=== PATIENT | female | born 1950 | race Caucasian/White ===

== ENCOUNTER 2020-02-22 16:46 | Observation (INO) ==
[2020-02-22] MEDS ORDERED: IOPAMIDOL 100 ML BOTTLE IV ONE (16:47)
[2020-02-22] MEDS ORDERED: 0.9 % SODIUM CHLORIDE 1,000 ML IV ONE (17:03)
[2020-02-22] MEDS ORDERED: morphine 2 MG/ML VIAL IV ONE (17:03)
[2020-02-22] MEDS ORDERED: ONDANSETRON 4 MG/2 ML VIAL IV ONE (17:03)
--- NOTE | 2020-02-22 17:08 | Emergency Department Note ---
Abdominal Pain HPI General Chief Complaint: Abdominal Pain Stated Complaint: RLQ pain Time Seen by Provider: 02/22/20 16:51 Source: patient Mode of arrival: ambulatory Limitations: no limitations History of Present Illness HPI Narrative: Narrative: 69-year-old female patient presents emergency department chief complaint of sudden onset right lower quadrant abdominal pain. Patient mentions she was making dinner in her kitchen just prior to arrival when she felt a sudden sharp, stabbing type pain to the right lower quadrant. This caused her great concern. She became nauseated but has not vomited. She still retains her appendix at this time. She does history of IBS but tells me she has not had issues associate with this "for many years". Her last bowel movement was 3 days ago. She mentions this is "for her. She currently rates her pain to the right lower quadrant and 8/10. ROS: Denies systemic illness, fever, sweats, chills. Denies headaches, tinnitus, or vision changes. Denies runny nose, sinus congestion, or cough. Denies shortness of breath. Denies retrosternal chest pain or palpitations. Denies dysuria, hematuria, urinary frequency, or urinary urgency. Denies generalized or focal weakness. Related Data Home Medications Medication Instructions Recorded Confirmed aspirin 81 mg chewable tablet 81 mg PO QDAY tab 10/05/14 05/17/17 ibuprofen 400 mg tablet 400 mg PO Q4H tab 10/05/14 05/17/17 omega-3 fatty acids 1,000 mg 1,000 mg PO QDAY cap 10/05/14 05/17/17 capsule calcium 500mg PO 09/30/16 05/17/17 vitamin E (dl, acetate) 400 unit 400 unit PO QDAY 09/30/16 05/17/17 capsule vitamin b-12 500mcg PO 09/30/16 05/17/17 cholecalciferol (vitamin D3) 50 2,000 unit PO QDAY cap 05/17/17 05/17/17 mcg (2,000 unit) capsule Previous Rx's Medication Instructions Recorded magnesium oxide 400 mg (241.3 mg 400 mg PO BID #60 tab 10/04/15 magnesium) tablet omeprazole 20 mg capsule,delayed 20 mg PO QDAY #30 cap 09/30/16 release thyroid (pork) 180 mg tablet 180 mg PO QDAY #30 tab 11/15/17 sertraline 50 mg tablet 100 mg PO QHS #180 tab 03/07/18 Allergies Allergy/AdvReac Type Severity Reaction Status Date / Time levofloxacin [From Levaquin] Allergy Unknown Unknown Verified 02/22/20 16:47 Review of Systems ROS ROS Narrative: Narrative: All systems ED: reviewed and negative except as stated. PFS Narrative Patient History Narrative: Narrative: Medical/Surgical/Family History All Active Problems (Updated 02/22/20 @ 19:13 by Parish Hale PA-C) Acute appendicitis (Acute) Ankle arthritis (Chronic) Disc disorder of lumbar region (Chronic) Depression (Chronic) Muscle cramps (Chronic) Atrophic vaginitis (Chronic) Acute meniscal injury of left knee (Chronic) Adenomatous polyp (Chronic) Disc disorder of lumbar region (Chronic) IBS (irritable bowel syndrome) (Chronic) Hyperlipidemia (Chronic) Medical History Acute meniscal injury of left knee (Chronic) Cat bite involving extremity (Resolved) Colonic polyp (Resolved) Disc disorder of lumbar region (Chronic) Hyperlipidemia (Chronic) IBS (irritable bowel syndrome) (Chronic) Surgical History Adenomatous polyp (Chronic) 2010 Removal History of colonoscopy (Chronic 01/07/17) History of tonsillectomy (Resolved) History of tubal ligation (Resolved) 1993 Family History Mother Chronic obstructive pulmonary disease Hyperlipidemia Essential hypertension Unknown Dementia due to general medical condition Maternal relatives Aunt Leukemia Malignant neoplasm of stomach Uncle Cardiac disease Cousin Malignant neoplasm of esophagus Social History Smoking Status: Never smoker Alcohol Intake Frequency: does not drink Exam Narrative Narrative: Narrative: General Limitations: no limitations General appearance: Present other (Well-developed, well-nourished, obese 69-year-old female patient laying semirecumbent on the emergency room gurney in obvious discomfort. She is in no acute respiratory distress. She is afebrile with normal vital signs.) Head Head: Present normocephalic Eye Eye: Present normal appearance, PERRL and EOMI; Absent scleral icterus and conjunctival injection ENT ENT: Present normal oropharynx and mucous membranes moist Neck Neck: Present trachea midline; Absent lymphadenopathy and thyromegaly Chest Chest: Present symmetric chest wall rise Respiratory Respiratory: Present normal lung sounds bilaterally; Absent respiratory distress, wheezes, stridor, accessory muscle use and prolonged expiratory phase Cardiovascular Cardiovascular: Present regular rate and normal rhythm; Absent systolic murmur and diastolic murmur Adbominal Abdominal: Present soft, tenderness, guarding, rebound, normal bowel sounds and tenderness at [place]'s Point; Absent distention, rigidity, organomegaly, psoas sign, obturator sign, heel tap sign, mass and pulsatile mass Expanded Abdominal Abdominal Tenderness: Present RLQ and severe Extremities Extremities: Present normal inspection, full ROM, normal capillary refill and other (Multiple superficial varicosities noted to the bilateral lower extremities.) Neurological Neurological: Present alert and oriented X3 Psychiatric Psychiatric: Present normal affect and normal mood Skin Skin: Present warm (WNL), dry and normal color Course Course Course Narrative: The differential diagnosis of lower abdominal pain in the adult patient includes the following: Appendicitis, diverticulitis, nephrolithiasis, pyelonephritis, acute urinary retention, cystitis, infectious colitis. Patient has sudden onset right lower quadrant abdominal pain this evening. She does retain her appendix we need to ensure this is not a an appendicitis. Patient is also not had a bowel movement last 3 days this could be constipation related. I am going to order a contrast-enhanced CT scan of her abdomen/for cause of her pain. Were also going to order some screening laboratory studies. Patient was given normal saline 1000 mL as a bolus. We are going to provide her morphine 2 mg IVP for her pain. Also going to give her Zofran 4 mg IVP for the nausea. Reevaluation(s) Reevaluation #1: Radiologist call with the verbal report of the CT scan of the patient's abdomen/pelvis. At this time patient does have apparent appendicitis with inflammation and swelling of her appendix. Upon reevaluation patient continues to complain of pain. I am still waiting on the patient's laboratory results. However, I did reach out to our on-call general surgeon (Dr. Garcia) discussed case briefly with him. At this time Dr. Garcia mentioned he would come down and evaluate the patient. Time: 18:30 Reevaluation #2: Dr. Garcia arrived to the patient's bedside and performed his evaluation. At this time patient is going to be admitted to the hospital under his care in order to undergo urgent appendectomy. A review of the patient's diagnostics of the following: CBC within normal limits. CMP also within normal limits. All further treatment decisions, modalities, and ultimate patient disposition to be carried out by Dr. Garcia. Time: 19:10 Vital Signs Vital signs: Vital Signs Temperature 97.7 F 02/22/20 16:47 Pulse Rate 66 02/22/20 16:47 Respiratory Rate 20 02/22/20 16:47 Blood Pressure 143/75 02/22/20 16:47 Pulse Oximetry (%) 98 02/22/20 16:47 Temperature 97.7 F 02/22/20 20:00 Pulse Rate 97 H 02/22/20 20:00 Respiratory Rate 20 02/22/20 20:00 Blood Pressure 130/51 02/22/20 20:00 Pulse Oximetry (%) 95 02/22/20 20:00 MDM MDM Narrative Medical decision making narrative: Narrative: Lab Data Lab results reviewed: Yes I reviewed the patient's lab results. Result diagrams: 02/22/20 17:10 02/22/20 17:13 Labs: Lab Results 02/22/20 02/22/20 02/22/20 Range/Units 17:10 17:13 18:37 WBC 9.6 (4.5-11.0) K/mcL RBC 4.35 (4.00-5.20) M/mcL Hgb 13.1 (12.0-15.0) g/dL Hct 42.0 (36.0-48.0) % MCV 96.6 (80.0-100.0) fL MCH 30.1 (26.0-34.0) pg MCHC 31.2 (31.0-36.0) g/dL RDW 12.7 (11.5-14.5) % Plt Count 162 (140-440) K/mcL MPV 10.7 H (7.4-10.4) fL Seg Neutrophils % 74 (38-78) % Lymphocytes % 17 (15-49) % Monocytes % (Manual) 7 (1-12) % Eosinophils % (Manual) 2 (0-7) % Platelet Estimate Normal (Normal) RBC Morphology Normal (Normal) Sodium 136 (133-145) mmol/L Potassium 3.7 (3.3-5.1) mmol/L Chloride 102 (96-108) mmol/L Carbon Dioxide 25 (22-30) mmol/L Anion Gap 9.0 (8.0-16.0) BUN 14 (8-23) mg/dL Creatinine 0.8 (0.6-1.1) mg/dL POC Creatinine 0.8 (0.6-1.2) mg/dL GFR Calculation 74 Glucose 96 (70-105) mg/dL Calcium 9.1 (8.6-10.4) mg/dL Total Bilirubin 0.3 (0.1-1.0) mg/dL AST 19 (<32) U/L ALT 19 (<40) U/L Alkaline Phosphatase 65 (39-117) U/L Total Protein 7.1 (5.9-8.4) gm/dL Albumin 4.1 (3.2-5.2) gm/dL Globulin 3.0 (2.2-3.7) gm/dL Albumin/Globulin Ratio 1.4 (1.0-2.3) Lipase 43 (7-60) U/L Urine Color Urine Appearance (Clear) Urine pH (5.0-9.0) Ur Specific [place] (1.000-1.035) Urine Protein (Negative) mg/dL Urine Glucose (UA) (Negative) mg/dL Urine Ketones (Negative) mg/dL Urine Occult Blood (Negative) mg/dL Urine Nitrate (Negative) Urine Bilirubin (Negative) mg/dL Urine Urobilinogen mg/dL Ur Leukocyte Esterase (Negative) /ug Ur Culture Indicated? SARS-CoV-2 (PCR) Negative (Negative) 02/22/20 Range/Units 18:40 WBC (4.5-11.0) K/mcL RBC (4.00-5.20) M/mcL Hgb (12.0-15.0) g/dL Hct (36.0-48.0) % MCV (80.0-100.0) fL MCH (26.0-34.0) pg MCHC (31.0-36.0) g/dL RDW (11.5-14.5) % Plt Count (140-440) K/mcL MPV (7.4-10.4) fL Seg Neutrophils % (38-78) % Lymphocytes % (15-49) % Monocytes % (Manual) (1-12) % Eosinophils % (Manual) (0-7) % Platelet Estimate (Normal) RBC Morphology (Normal) Sodium (133-145) mmol/L Potassium (3.3-5.1) mmol/L Chloride (96-108) mmol/L Carbon Dioxide (22-30) mmol/L Anion Gap (8.0-16.0) BUN (8-23) mg/dL Creatinine (0.6-1.1) mg/dL POC Creatinine (0.6-1.2) mg/dL GFR Calculation Glucose (70-105) mg/dL Calcium (8.6-10.4) mg/dL Total Bilirubin (0.1-1.0) mg/dL AST (<32) U/L ALT (<40) U/L Alkaline Phosphatase (39-117) U/L Total Protein (5.9-8.4) gm/dL Albumin (3.2-5.2) gm/dL Globulin (2.2-3.7) gm/dL Albumin/Globulin Ratio (1.0-2.3) Lipase (7-60) U/L Urine Color Straw Urine Appearance Clear (Clear) Urine pH 6.0 (5.0-9.0) Ur Specific [place] 1.025 (1.000-1.035) Urine Protein Negative (Negative) mg/dL Urine Glucose (UA) Negative (Negative) mg/dL Urine Ketones Negative (Negative) mg/dL Urine Occult Blood Negative (Negative) mg/dL Urine Nitrate Negative (Negative) Urine Bilirubin Negative (Negative) mg/dL Urine Urobilinogen Negative mg/dL Ur Leukocyte Esterase Negative (Negative) /ug Ur Culture Indicated? No SARS-CoV-2 (PCR) (Negative) Radiology Data Radiology results reviewed: Yes I reviewed the patient's radiology results. Radiology results narrative: Verbal report from radiologist mentions that the contrast-enhanced abdominal/pelvic CT scan did show evidence of acute appendicitis. Discharge Plan Patient/Caregiver Discharge Instructions Pt seen by FABRIC SEPARATOR OPERATOR/PA only: Yes Clinical Impression: Acute appendicitis Qualifiers: Acute appendicitis type: with localized peritonitis Appendicitis gangrene presence: unspecified whether gangrene present Appendicitis perforation presence: unspecified whether perforation present Appendicitis abscess presence: unspecified whether abscess present Qualified Code(s): K35.30 - Acute appendicitis with localized peritonitis, without perforation or gangrene Patient Disposition: Xfer As Inpt ([facility]) Condition: Good Discharge Date/Time: 02/22/20 19:50
[2020-02-22 17:16] LABS: POC Creatinine 0.8 mg/dL (0.6-1.2)
[2020-02-22 18:10] LABS: ALT/SGPT 19 U/L (<40); AST/SGOT 19 U/L (<32); Albumin 4.1 gm/dL (3.2-5.2); Albumin/Globulin Ratio 1.4 (1.0-2.3); Alkaline Phosphatase 65 U/L (39-117); Bilirubin,Total 0.3 mg/dL (0.1-1.0); Blood Urea Nitrogen 14 mg/dL (8-23); Calcium 9.1 mg/dL (8.6-10.4); Carbon Dioxide 25 mmol/L (22-30); Chloride 102 mmol/L (96-108); Glomerular Filtration Rate 74; Glucose 96 mg/dL (70-105)
--- NOTE | 2020-02-22 18:35 | General Surg History&Physical ---
HPI History of Present Illness Patient information: Note initiated : 02/22/20 at 6:34 pm Service Date, if different from initiated Date: [] Patient: Radha Rojas a 69 y/o F admitted on for RLQ pain. Chief Complaint: [] Chief complaint: right lower quadrant History of present illness: Ms. Rojas is a 69 year old F admitted with a history of acute appendicitis. The patient had acute onset of right lower quadrant pain about 1630 hrs. this afternoon. She had nausea without vomiting. The pain persisted and she finally was seen in the emergency room with finding of tenderness with guarding in the right lower quadrant. CT of the abdomen shows an acutely inflamed appendix with appendicolith. She is admitted and will have appendectomy tomorrow. Review of Systems All systems: reviewed and no additional remarkable complaints except as stated Gastrointestinal Gastrointestinal: Present abdominal pain, bloating, cramping and nausea; Absent vomiting PFSH PFSH All Active Problems (Updated 02/22/20 @ 18:41 by Brooks Garcia MD) Acute appendicitis (Acute) Ankle arthritis (Chronic) Disc disorder of lumbar region (Chronic) Depression (Chronic) Muscle cramps (Chronic) Atrophic vaginitis (Chronic) Acute meniscal injury of left knee (Chronic) Adenomatous polyp (Chronic) Disc disorder of lumbar region (Chronic) IBS (irritable bowel syndrome) (Chronic) Hyperlipidemia (Chronic) Medical History Acute meniscal injury of left knee (Chronic) Cat bite involving extremity (Resolved) Colonic polyp (Resolved) Disc disorder of lumbar region (Chronic) Hyperlipidemia (Chronic) IBS (irritable bowel syndrome) (Chronic) Surgical History Adenomatous polyp (Chronic) 2005, 2010 Removal History of colonoscopy (Chronic 01/07/17) History of tonsillectomy (Resolved) History of tubal ligation (Resolved) 1993 Family History Mother Chronic obstructive pulmonary disease Hyperlipidemia Essential hypertension Unknown Dementia due to general medical condition Maternal relatives Aunt Leukemia Malignant neoplasm of stomach Uncle Cardiac disease Cousin Malignant neoplasm of esophagus Social History (Updated 05/17/17 @ 09:12 by Darrel Mckay MD) household members: spouse housing: house lives independently: Yes marital status: occupational status: previously employed occupation: Administrative occupational exposures/hazards: No pets and animals: Yes pets and animals: dog(s) leisure activities: music hx recent travel: No sexually active: Yes well-balanced diet: daily or most days daily servings fruits/ve or more times/day daily servings of milk/calcium: 0-1 reads food labels: sometimes during the past year weight has: remained stable smoking status: Never smoker alcohol intake frequency: does not drink MEDS/ALLERGIES Home Medications and Allergies Home Medications Medication Instructions Recorded Confirmed Type aspirin 81 mg chewable tablet 81 mg PO QDAY tab 10/05/14 05/17/17 History ibuprofen 400 mg tablet 400 mg PO Q4H tab 10/05/14 05/17/17 History omega-3 fatty acids 1,000 mg 1,000 mg PO QDAY cap 10/05/14 05/17/17 History capsule magnesium oxide 400 mg (241.3 mg 400 mg PO BID #60 tab 10/04/15 05/17/17 Rx magnesium) tablet calcium 500mg PO 09/30/16 05/17/17 History omeprazole 20 mg capsule,delayed 20 mg PO QDAY #30 cap 09/30/16 05/17/17 Rx release vitamin E (dl, acetate) 400 unit 400 unit PO QDAY 09/30/16 05/17/17 History capsule vitamin b-12 500mcg PO 09/30/16 05/17/17 History cholecalciferol (vitamin D3) 50 2,000 unit PO QDAY cap 05/17/17 05/17/17 History mcg (2,000 unit) capsule thyroid (pork) 180 mg tablet 180 mg PO QDAY #30 tab 11/15/17 Rx sertraline 50 mg tablet 100 mg PO QHS #180 tab 03/07/18 Rx Allergies Allergy/AdvReac Type Severity Reaction Status Date / Time levofloxacin [From Levaquin] Allergy Unknown Unknown Verified 02/22/20 16:47 Physical Examination Vital Signs Vital signs: Temp Pulse Resp BP Pulse Ox 97.7 F 66 20 143/75 98 02/22/20 16:47 02/22/20 16:47 02/22/20 16:47 02/22/20 16:47 02/22/20 16:47 General physical appearance General physical exam: well developed, well nourished, moderate distress and moderate pain Eyes Eye exam: PERRL and normal ocular movement ENT ENT exam: normal nares and normal mucosa Head Head exam IM: Present atraumatic, normal inspection and normocephalic Neck Neck exam: no masses, no bruits, trachea midline, no lymphadenopathy and no venous distension Cardiovascular Cardiovascular exam IM: Present normal rate and rhythm, JVD, RRR, +S1, +S2 and systolic murmur Respiratory Respiratory exam: normal expansion, normal respiratory effort, clear to percussion and clear to auscultation Abdomen Abdomen: Present soft, non tender, tender and bowel sounds Integumentary Integumentary: Present no rash, no growths and no abnormal pigmentation Neurologic Neurologic: Present normal coordination and normal sensation Musculoskeletal Musculoskeletal: Present normal gait and normal posture Psychiatric Psychiatric: Present oriented to time, oriented to person, oriented to place, speech is normal and memory intact Results Labs Result diagrams: 02/22/20 17:10 02/22/20 17:13 Labs: Diabetes panel 02/22/20 Range/Units 17:13 Sodium 136 (133-145) mmol/L Potassium 3.7 (3.3-5.1) mmol/L Chloride 102 (96-108) mmol/L Carbon Dioxide 25 (22-30) mmol/L BUN 14 (8-23) mg/dL Creatinine 0.8 (0.6-1.1) mg/dL Glucose 96 (70-105) mg/dL Calcium 9.1 (8.6-10.4) mg/dL AST 19 (<32) U/L ALT 19 (<40) U/L Alkaline Phosphatase 65 (39-117) U/L Total Protein 7.1 (5.9-8.4) gm/dL Albumin 4.1 (3.2-5.2) gm/dL Calcium panel 02/22/20 Range/Units 17:13 Calcium 9.1 (8.6-10.4) mg/dL Albumin 4.1 (3.2-5.2) gm/dL Pituitary panel 02/22/20 Range/Units 17:13 Sodium 136 (133-145) mmol/L Potassium 3.7 (3.3-5.1) mmol/L Chloride 102 (96-108) mmol/L Carbon Dioxide 25 (22-30) mmol/L BUN 14 (8-23) mg/dL Creatinine 0.8 (0.6-1.1) mg/dL Glucose 96 (70-105) mg/dL Calcium 9.1 (8.6-10.4) mg/dL Adrenal panel 02/22/20 Range/Units 17:13 Sodium 136 (133-145) mmol/L Potassium 3.7 (3.3-5.1) mmol/L Chloride 102 (96-108) mmol/L Carbon Dioxide 25 (22-30) mmol/L BUN 14 (8-23) mg/dL Creatinine 0.8 (0.6-1.1) mg/dL Glucose 96 (70-105) mg/dL Calcium 9.1 (8.6-10.4) mg/dL Total Bilirubin 0.3 (0.1-1.0) mg/dL AST 19 (<32) U/L ALT 19 (<40) U/L Alkaline Phosphatase 65 (39-117) U/L Total Protein 7.1 (5.9-8.4) gm/dL Albumin 4.1 (3.2-5.2) gm/dL All other labs normal. A/P Assessment and plan (1) Acute appendicitis: Status: Acute (2) Depression: Status: Chronic Qualifiers: Depression Type: major depressive disorder Major depression recurrence: recurrent Active/Remission status: in partial remission Qualified Code(s): F33.41 - Major depressive disorder, recurrent, in partial remission; F33.41 - Major depressive disorder, recurrent, in partial remission; F33.41 - Major depressive disorder, recurrent, in partial remission; F33.41 - Major depressive disorder, recurrent, in partial remission (3) IBS (irritable bowel syndrome): Status: Chronic Narrative A/P Narrative: Zosyn 3.375 g IV every 6 hours Promethazine 12.5 mg IV every 4 hours when necessary May have clear liquids until midnight then nothing by mouth. Consent to be signed for laparoscopic appendectomy to be done tomorrow Time Spent With Patient Time: Total time spent is greater than 50% in coordination of care (as doc umented) at patient's floor/unit and/or counseling patient:
[2020-02-22] MEDS ORDERED: ONDANSETRON 4 MG/2 ML VIAL IV PRN (18:42)
[2020-02-22] MEDS ORDERED: HYDROmorphone 1 MG/ML SYRINGE IV PRN (18:42)
[2020-02-22 18:46] LABS: Eosinophils % (Manual) 2 % (0-7); Hemoglobin 13.1 g/dL (12.0-15.0); Lymphocytes % 17 % (15-49); Mean Cell Volume 96.6 fL (80.0-100.0); Mean Corpuscular HGB Conc 31.2 g/dL (31.0-36.0); Mean Platelet Volume 10.7 fL (7.4-10.4); Monocytes % (Manual) 7 % (1-12); Platelet Count 162 K/mcL (140-440); Platelet Estimate NORMAL (Normal); RBC 4.35 M/mcL (4.00-5.20); RBC Morphology NORMAL (Normal); Red Cell Distribution Width 12.7 % (11.5-14.5); Segmented Neutrophils % 74 % (38-78); WBC 9.6 K/mcL (4.5-11.0)
[2020-02-22] MEDS: 0.9 % SODIUM CHLORIDE 1,000 ML IV SCH (20:15)
[2020-02-22] MEDS: ACETAMINOPHEN 1,000 MG/100 ML BOTTLE IV SCH (20:20)
[2020-02-22 20:25] LABS: Appearance,Urine CLEAR (Clear); Bilirubin,Urine Negative (Negative); Color,Urine STRAW; Culture Indicated,Urine No; Glucose,Urine (UA) Negative (Negative); Ketones,Urine Negative (Negative); Leukocyte Esterase,Urine Negative /ug (Negative); Nitrate,Urine Negative (Negative); Protein,Urine Negative (Negative); Specific Gravity,Urine 1.025 (1.000-1.035); Urine Blood Negative (Negative); Urobilinogen,Urine Negative
[2020-02-22] MEDS ORDERED: traZODone HCL 50 MG TABLET PO PRN (21:00)
[2020-02-22] MEDS: PIPERACILLIN SODIUM/TAZOBACTAM 3.375 GM in DEXTROSE 5% IN WATER 50 ML IV SCH (22:00)
[2020-02-22] MEDS: 0.9 % SODIUM CHLORIDE 10 ML SYRINGE IV SCH (22:00)
[2020-02-23] MEDS: ACETAMINOPHEN 1,000 MG/100 ML BOTTLE IV SCH ×2 (01:40→07:04)
[2020-02-23] MEDS: PIPERACILLIN SODIUM/TAZOBACTAM 3.375 GM in DEXTROSE 5% IN WATER 50 ML IV SCH ×4 (04:05→17:53)
[2020-02-23] MEDS: 0.9 % SODIUM CHLORIDE 10 ML SYRINGE IV SCH ×3 (04:22→21:33)
[2020-02-23] MEDS: 0.9 % SODIUM CHLORIDE 1,000 ML IV SCH ×4 (04:53→22:03)
[2020-02-23] MEDS ORDERED: SCOPOLAMINE 1 PATCH PATCH TOPICAL PRN (06:49)
[2020-02-23 07:14] LABS: Basophils # (Auto) 0.01 K/mcL (0.00-0.20); Basophils % (Auto) 0.1 % (0.0-2.0); Eosinophils # (Auto) 0.02 K/mcL (0.00-0.70); Eosinophils % (Auto) 0.3 % (0.0-7.0); Hematocrit 36.4 % (36.0-48.0); Hemoglobin 11.4 g/dL (12.0-15.0); Lymphocytes # (Auto) 1.22 K/mcL (1.50-4.80); Lymphocytes % (Auto) 17.3 % (15.0-49.0); Mean Cell Volume 96.3 fL (80.0-100.0); Mean Corpuscular HGB Conc 31.3 g/dL (31.0-36.0); Mean Platelet Volume 10.7 fL (7.4-10.4); Monocytes # (Auto) 0.53 K/mcL (0.10-0.90); Monocytes % (Auto) 7.5 % (1.0-12.0); Neutrophils % (Auto) 74.8 % (38.0-78.0); Platelet Count 116 K/mcL (140-440); RBC 3.78 M/mcL (4.00-5.20); Red Cell Distribution Width 12.9 % (11.5-14.5)
--- NOTE | 2020-02-23 07:45 | Cat Scan Report ---
History: Sudden onset right lower quadrant pain with nausea TECHNIQUE: The patient was imaged following injection of intravenous nonionic contrast scanning during the portal venous phase from the diaphragm through the symphysis pubis. Sagittal and coronal reformats are created. The radiation exposure was limited using dose reduction technology. FINDINGS: The lung bases are clear. Two subcapsular cysts are present inferiorly in the right lobe of the liver. The larger measures 12 mm. These are unchanged from 09/05/10. The liver is otherwise normal. Spleen is normal size and homogeneous. The gallbladder and bile ducts are normal. There is no evidence of mass or inflammation in the pancreas. The adrenals and kidneys are normal. Moderate amount calcified plaque is present along the craft of normal caliber abdominal aorta and iliac arteries. The appendix is acutely inflamed and measures 11 mm in thickness. There is stranding of the surrounding fat. No abscess is present. There is no free intraperitoneal air or ascites. There are multiple noninflamed diverticula in the sigmoid colon and several in the distal descending colon. There is no bowel obstruction. Uterus and ovaries are atrophic. Urinary bladder is nearly empty. There is moderate to severe disc degeneration and arthritis at L3-4 L4-5 and L5-S1 with moderate degeneration at L1-2. IMPRESSION: Acute diverticulitis. Diverticulosis Parish Hale was called with results Interpreted and Authenticated by: Elio Case 02/23/20
[2020-02-23 07:51] LABS: ALT/SGPT 13 U/L (<40); AST/SGOT 13 U/L (<32); Albumin 3.3 gm/dL (3.2-5.2); Albumin/Globulin Ratio 1.3 (1.0-2.3); Alkaline Phosphatase 52 U/L (39-117); Bilirubin,Direct < 0.2 mg/dL (<0.3); Bilirubin,Total 0.6 mg/dL (0.1-1.0); Blood Urea Nitrogen 9 mg/dL (8-23); Carbon Dioxide 25 mmol/L (22-30); Chloride 107 mmol/L (96-108); Globulin 2.5 gm/dL (2.2-3.7); Glomerular Filtration Rate 74; Glucose 113 mg/dL (70-105); Lactate Dehydrogenase 148 U/L (135-225); Phosphorous 3.1 mg/dL (2.5-4.5); Triglycerides 56 mg/dL (<150); Uric Acid 3.1 mg/dL (2.5-8.0)
--- NOTE | 2020-02-23 09:00 | XRay Report ---
HISTORY: Preop for appendectomy FINDINGS: The lungs are clear. The heart, mediastinum, michelle and pleura are normal. No free intra-abdominal air is present. IMPRESSION: Normal chest. Interpreted and Authenticated by: Elio Case 02/23/20
[2020-02-23] MEDS ORDERED: LIDOCAINE HCL/PF 100 MG/5 ML SYRINGE IV ONE (09:47)
[2020-02-23] MEDS ORDERED: SUGAMMADEX SODIUM 200 MG/2 ML VIAL IV ONE (09:47)
[2020-02-23] MEDS ORDERED: KETAMINE 100 MG/ML ML ONE (09:47)
[2020-02-23] MEDS ORDERED: ROCURONIUM 10 MG/ML ML IV ONE (09:47)
[2020-02-23] MEDS ORDERED: fentaNYL 100 MCG/2 ML VIAL IV ONE (09:47)
[2020-02-23] MEDS ORDERED: DEXAMETHASONE 10 MG/ML VIAL ONE (09:47)
[2020-02-23] MEDS ORDERED: PROPOFOL 200 MG/20 ML VIAL IV ONE (09:47)
[2020-02-23] MEDS ORDERED: ONDANSETRON 4 MG/2 ML VIAL ONE (09:47)
[2020-02-23] MEDS ORDERED: LACTATED RINGERS 250 ML IV PRN (10:20)
[2020-02-23] MEDS ORDERED: MEPERIDINE 25 MG/ML SYRINGE IV PRN (10:20)
[2020-02-23] MEDS ORDERED: NALOXONE HCL 0.4 MG/ML VIAL IV PRN (10:20)
[2020-02-23] MEDS ORDERED: ONDANSETRON 4 MG/2 ML VIAL IV PRN ×2 (10:20→11:55)
[2020-02-23] MEDS ORDERED: IPRATROPIUM/ALBUTEROL 3 ML AMPUL.NEB NEB PRN (10:20)
[2020-02-23] MEDS ORDERED: diphenhydrAMINE 50 MG/ML VIAL IV PRN (10:20)
[2020-02-23] MEDS ORDERED: ACETAMINOPHEN 1,000 MG/100 ML BOTTLE IV ONE (10:20)
[2020-02-23] MEDS ORDERED: PROMETHAZINE 25 MG/ML VIAL IV PRN (10:20)
[2020-02-23] MEDS ORDERED: LACTATED RINGERS 1,000 ML IV SCH (10:30)
--- NOTE | 2020-02-23 10:43 | Brief Operative Note ---
Brief Operative Note Date of procedure: 02/23/20 Pre-op diagnosis: acute appendicitis Post-op diagnosis: other (acute appendicitis) Procedure: laparoscopic appendectomy Grafts/Implants: No (christina drain x1 ) Anesthesia: GETA Findings: acute suppurative appendicitis Complications: none Surgeon: Brooks Garcia Estimated blood loss (cc): 15 Specimens Removed/Pathology: other (appendix) Condition: stable Disposition: PACU
[2020-02-23] MEDS: fentaNYL 100 MCG/2 ML VIAL IV PRN ×3 (11:07→11:23)
[2020-02-23] MEDS ORDERED: IOPAMIDOL 100 ML BOTTLE IV ONE (11:55)
[2020-02-23] MEDS ORDERED: HYDROmorphone 1 MG/ML SYRINGE IV PRN (11:55)
[2020-02-23] MEDS ORDERED: ACETAMINOPHEN 1,000 MG/100 ML BOTTLE IV SCH (13:00)
[2020-02-23] MEDS ORDERED: SERTRALINE 50 MG TABLET PO SCH (21:00)
[2020-02-23] MEDS ORDERED: traZODone HCL 50 MG TABLET PO PRN (21:00)
[2020-02-23] MEDS: MAGNESIUM OXIDE 400 MG TABLET PO SCH (22:09)
[2020-02-24] MEDS: PIPERACILLIN SODIUM/TAZOBACTAM 3.375 GM in DEXTROSE 5% IN WATER 50 ML IV SCH ×3 (00:30→11:59)
[2020-02-24] MEDS: 0.9 % SODIUM CHLORIDE 10 ML SYRINGE IV SCH ×2 (05:00→13:09)
[2020-02-24] MEDS ORDERED: THYROID, PORK 60 MG TABLET PO SCH (07:30)
[2020-02-24] MEDS: 0.9 % SODIUM CHLORIDE 1,000 ML IV SCH ×2 (07:39→12:37)
[2020-02-24] MEDS ORDERED: VITAMIN E (DL,TOCOPHERYL ACET) 400 UNIT CAPSULE PO SCH (09:00)
[2020-02-24] MEDS ORDERED: VITAMIN D3 1,000 UNIT TABLET PO SCH (09:00)
[2020-02-24] MEDS ORDERED: FISH OIL 1,000 MG CAPSULE PO SCH (09:00)
[2020-02-24] MEDS: MAGNESIUM OXIDE 400 MG TABLET PO SCH (09:29)
--- NOTE | 2020-02-24 13:04 | Discharge Summary ---
Discharge Provider Provider Patient information: Note initiated : 02/24/20 at 12:40 pm Service Date, if different from initiated Date: [] Patient: Radha Rojas 69 y/o F admitted on 02/22/20 for RLQ pain. Chief Complaint: [] Date of admission: 02/22/20 19:50 Discharge date: 02/24/20 Primary care physician: Darrel Mckay Admitting clinician: Brooks Garcia Consults: 02/22/20 18:16 Consult to Physician [CONS] Stat Comment: Consulting Provider: Brooks Garcia Reason For Exam: Physician to Consult Attending physician on discharge: Brooks Garcia Discharging clinician: Brooks Garcia COURSE Hospital Course Hospital course: 69-year-old female who presented with a 4 hour history of right lower quadrant and hypogastric pain with nausea. Evaluation in the emergency room revealed acute appendicitis. She was admitted and on 22 February underwent laparoscopic appendectomy. She was found to have moderately severe acute inflammation of the appendix. The base of the cecum and the right gutter was strained. The patient is tall and well. She is tolerating diet without difficulty. White blood count is 7000. CASEY drainage is serosanguineous. Patient has no complaints except for mild constipation. She is stable for discharge. Discharge diagnosis: acute appendicitis Reason for admission: acute appendicitis Procedures: laparoscopic appendectomy Pertinent studies/significant findings: CT of abdomen and pelvis with contrast Complications: none Time Spent with Patient Time attestation: Total time spent providing and/or coordinating discharge services: Physical Examination Vital Signs Vital signs: Temp Pulse Resp BP Pulse Ox 98.1 F 62 18 126/62 95 02/24/20 07:21 02/24/20 07:21 02/24/20 07:21 02/24/20 07:21 02/24/20 07:21 General physical appearance General physical exam: well developed, well nourished, moderate distress and moderate pain Eyes Eye exam: PERRL and normal ocular movement ENT ENT exam: normal nares and normal mucosa Head Head exam IM: Present atraumatic, normal inspection and normocephalic Neck Neck exam: no masses, no bruits, trachea midline, no lymphadenopathy and no venous distension Cardiovascular Cardiovascular exam IM: Present normal rate and rhythm, JVD, RRR, +S1, +S2 and systolic murmur Respiratory Respiratory exam: normal expansion, normal respiratory effort, clear to percussion and clear to auscultation Abdomen Abdomen: Present soft, tender (mild tenderness around port sites. Otherwise benign abdomen) and bowel sounds Integumentary Integumentary: Present no rash, no growths and no abnormal pigmentation Neurologic Neurologic: Present normal coordination and normal sensation Musculoskeletal Musculoskeletal: Present normal gait and normal posture Psychiatric Psychiatric: Present oriented to time, oriented to person, oriented to place, speech is normal and memory intact Discharge Plan Patient/Caregiver Discharge Instructions Activity: increase activity as tolerated Diet: Regular Diet Activity Restrictions/Additional Instructions: no lifting over 20 pounds for 2 weeks Prescriptions: No Action thyroid (pork) [[place] Thyroid] 180 mg tablet 180 mg PO QDAY Qty: 30 RF: 6 sertraline 50 mg tablet 100 mg PO QHS Qty: 180 RF: 3 omega-3 fatty acids 1,000 mg capsule 1,000 mg PO QDAY RF: 0 magnesium oxide 400 mg tablet 400 mg PO BID Qty: 60 RF: 0 vitamin E (dl, acetate) 400 unit capsule 400 unit PO QDAY RF: 0 cholecalciferol (vitamin D3) 2,000 unit capsule 2,000 unit PO QDAY RF: 0 Follow Up Plan Follow up with: Darrel Mckay MD [Primary Care Provider] - Brooks Garcia MD [Physician] - 03/11/20 10:45 am Patient Disposition: Home, Self-Care Plan of Treatment: patient will use MiraLAX for constipation. She wishes to use Tylenol for pain control Prognosis: Good Rehab Potential: Good I certify that the patient requires SNF services: No Overall status at discharge: patient is progressing back to baseline Discharge Orders: Discharge Order (Routine); Ordered 02/24/20 Ordered By: Brooks Garcia Pending Pending Pending: Resuscitation Status Full Code Diet Regular Diet Start Sat Feb 23 0800 Fish Oil (Fish Oil) 1,000 mg PO DAILY JOSÉ MANUEL Last Admin: 02/24/20 09:29 Dose: 1,000 mg Documented by: RYLANDFIKarey Hydromorphone HCl (Dilaudid) 1 mg IV Q2HP PRN; Protocol PRN Reason: Per Pain Protocol Last Admin: 02/23/20 22:09 Dose: 1 mg Documented by: MELVIN Sodium Chloride (Sodium Chloride 0.9%) 1,000 mls @ 125 mls/hr IV .Q8H ON LICENSE OF [facility] Last Admin: 02/24/20 12:37 Dose: Not Given Documented by: Admin: 02/24/20 07:39 Dose: 125 mls/hr Documented by: Infusion: 02/24/20 06:03 Dose: 125 mls/hr Documented by: Admin: 02/23/20 22:03 Dose: 125 mls/hr Documented by: Infusion: 02/23/20 20:10 Dose: 125 mls/hr Documented by: Admin: 02/23/20 12:10 Dose: 125 mls/hr Documented by: SHYANNE Piperacillin Sod/Tazobactam (Sod 3.375 gm/ Dextrose) 50 mls @ 100 mls/hr IV Q6H ON LICENSE OF [facility]; Protocol Last Infusion: 02/24/20 12:37 Dose: 0 mls/hr Documented by: Admin: 02/24/20 11:59 Dose: 100 mls/hr Documented by: Infusion: 02/24/20 06:29 Dose: 100 mls/hr Documented by: Admin: 02/24/20 05:59 Dose: 100 mls/hr Documented by: Infusion: 02/24/20 01:00 Dose: 100 mls/hr Documented by: Admin: 02/24/20 00:30 Dose: 100 mls/hr Documented by: Infusion: 02/23/20 18:23 Dose: 100 mls/hr Documented by: Admin: 02/23/20 17:53 Dose: 100 mls/hr Documented by: Infusion: 02/23/20 12:40 Dose: 0 mls/hr Documented by: Admin: 02/23/20 12:10 Dose: 100 mls/hr Documented by: SHYANNE Magnesium Oxide (Magnesium Oxide) 400 mg PO BID ON LICENSE OF [facility] Last Admin: 02/24/20 09:29 Dose: 400 mg Documented by: Admin: 02/23/20 22:09 Dose: 400 mg Documented by: MELVIN Sertraline HCl (Zoloft) 100 mg PO QHS ON LICENSE OF [facility] Last Admin: 02/23/20 22:09 Dose: 100 mg Documented by: MELVIN Sodium Chloride (Saline Flush) 10 ml IV Q8 ON LICENSE OF [facility] Last Admin: 02/24/20 05:00 Dose: Not Given Documented by: Admin: 02/23/20 21:33 Dose: Not Given Documented by: Admin: 02/23/20 15:32 Dose: Not Given Documented by: SHYANNE Thyroid (Thyroid) 180 mg PO ACB ON LICENSE OF [facility] Last Admin: 02/24/20 08:00 Dose: 180 mg Documented by: PAULA Trazodone HCl (Desyrel) 25 mg PO HSP PRN PRN Reason: Insomnia Last Admin: 02/23/20 22:09 Dose: 25 mg Documented by: MELVIN Vitamin D (Vitamin D3) 2,000 unit PO DAILY ON LICENSE OF [facility] Last Admin: 02/24/20 09:29 Dose: 2,000 unit Documented by: PAULA Vitamin E (Vitamin E) 400 unit PO QDAY ON LICENSE OF [facility] Last Admin: 02/24/20 09:29 Dose: 400 unit Documented by: PAULA Shift Summary 02/24/20 05:07 Shift Summary by Carlyn Hedrick The patient is alert and oriented times four, she is up with 1 SBA for IV pole assistance and voids quantity sufficient via restroom and her last BM was 4 days ago prior to her lap appy (history constipation/IBS). She has 3 incision sites with bo and Tegaderm, CASEY drain midline lower umbilicus with serosanguineous output this shift and dressings changed for bloody drainage post op. Received Dilaudid IV once, pain well managed and tolerable, johnathan hose in place bilaterally. Full liquid diet tolerated well post op and will be advanced to Regular at breakfast, has denied nausea all shift, NS infusing into her left forearm and is receiving scheduled Zosyn. VSS, afebrile, RA, plan is to discharge to home with her spouse today, will update shift summary report at bedside. Initialized on 02/24/20 05:07 - END OF NOTE
--- NOTE | 2020-02-26 12:56 | Surgical Pathology Report ---
Histology Microscopic Diagnosis Specimen A- APPENDIX, APPENDECTOMY: -- ACUTE APPENDICITIS WITH SEROSITIS. (DMT:sln) Gross Description Received in formalin labeled appendix, is a oliveira-ferro appendix. It is 5.9 cm in length by up to 0.8 cm in diameter. There is a 1.2 cm staple line next to the margin which is open. The serosa is oliveira-ferro with oliveira-ferro possible exudate on the surface. There is up to 1.2 cm of ferro attached fat. Cut surfaces are pink-ferro with no areas of perforation identified. Manager Rn Case sections are submitted in one cassette. (SCB:adj) Electronically Signed Nestor Sánchez MD, FCAP Electronically Signed 02/26/2020 12:55 PM
--- NOTE | 2020-02-26 14:01 | Operative Note ---
DATE OF OPERATION: 02/23/2020 PREOPERATIVE DIAGNOSIS: Acute appendicitis. POSTOPERATIVE DIAGNOSIS: Acute appendicitis. PROCEDURE: Laparoscopic appendectomy. SURGEON: Brooks Garcia M.D. FINDINGS: Acute suppurative appendicitis. DESCRIPTION OF PROCEDURE: Under general anesthesia, the patient's abdomen was prepped and draped in a sterile field. Supraumbilical incision was made and Veress needle was inserted. Abdomen was insufflated with 2.5 liters of CO2. A 12 mm port was placed. Laparoscope was placed. Under videoscopic guidance, a 5 mm port was placed in the suprapubic midline and a 12 mm port was placed in the left lower quadrant. The patient was placed in deep Trendelenburg position and rotated to the left. Inspection revealed the appendix at the base of the cecum, extending into the pelvis and attached to the pelvic viscera. Using blunt dissection, it was dissected free. The mesoappendix was dissected and transected using an Endo CRISTINA stapler. The base of the appendix was transected using Endo CRISTINA stapler. The appendix was placed in an Endopouch and retrieved. Irrigation was carried out in the gutter and in the pelvis. A Pantera drain was placed in the right gutter at the base of the cecum. It was brought out through the suprapubic midline incision. The fascia at the umbilicus was closed with interrupted 0 Vicryl. Skin incisions were closed with bo. The drain was secured with 2-0 nylon. Dressings were placed. The patient tolerated the procedure well. She was awakened, transferred to a bed, and taken to the postanesthetic care unit in stable, satisfactory condition. LCS:sangita Job ID: [id number] Doc ID: [id number] Brooks Garcia M.D.
== END 2020-02-24 15:50 | disposition home or self-care (01) ==
LOC: MEDSUR 16:46 → ED 16:46 → MEDSUR 19:50
PROVIDERS: ADMIT Family Medicine Adult Medicine; ATTEND Family Medicine Adult Medicine